=== PATIENT | female | born 1955 | race Caucasian/White ===

== ENCOUNTER 2017-09-25 09:32 | Emergency (ER) | payer OTHER ==
--- NOTE | 2017-09-25 11:54 | CT Preliminary Report ---
Exam: CT HEAD W/O IMPRESSION: Generalized mild age-related cortical atrophic changes without evidence of acute intracra nial abnormality. [facility] SITE ID: [id number]
--- NOTE | 2017-09-25 11:54 | CT Report ---
EXAM: CT HEAD EXAM DATE: 09/25/2017 11:46 AM. CLINICAL HISTORY: Dipploplia. COMPARISON: None. TECHNIQUE: Multiaxial CT images were obtained from the foramen magnum to the vertex. Reformats: Coron al. IV contrast: None. In accordance with CT protocol optimization, one or more of the following dose reduction techniques w ere utilized for this exam: automated exposure control, adjustment of mA and/or KV based on patient s ize, or use of iterative reconstructive technique. FINDINGS: Parenchyma: No intraparenchymal hemorrhage. No evidence of mass, midline shift, or CT findings of acu te infarction. Green-white differentiation is distinct. Diffuse chronic microangiopathic white matter changes are evident. Extraaxial Spaces: Normal for age. No subdural or epidural collections identified. Ventricles: The ventricles and cortical sulci are enlarged, consistent with age-related tissue loss. Sinuses and orbits: Imaged paranasal sinuses, orbits, and mastoids show no significant abnormality. Bones: No evidence of fracture or calvarial defect. Other: None. IMPRESSION: Generalized mild age-related cortical atrophic changes without evidence of acute intracra nial abnormality. [facility] Referring Provider Line: [phone] SITE ID: [id number]
--- NOTE | 2017-09-25 12:37 | ED Physician Documentation ---
PD HPI OPHTHO - Stated complaint Stated Complaint: DOUBLE VISION - Chief complaint Chief Complaint: Neuro - History obtained from History obtained from: Patient, Family - History of Present Illness Timing - onset: Today Timing - duration: Minutes Timing - details: Abrupt onset, Still present Location: Right Quality / character: Other (double vision from one eye) Associated symptoms: Double vision, Decreased vision (blurring bilaterally). No : Redness, Swelling, Tearing, Discharge, Matting, FB sensation Contributing factors: No: Recent URI Similar symptoms before: Has not had sx before Recently seen: Not recently seen - Additional information Additional information: 62-year-old female was driving today when she noticed that she was seeing double out of her right eye. She noticed blurring of vision from both eyes but on the right there is a double image vertically. She has repeated this and closing the left eye she sees double out of the right she sees blurry with either eye. Review of Systems Constitutional: denies: Fever, Chills, Myalgias Eyes: reports: Decreased vision, Other (double vision) Ears: denies: Loss of hearing, Ear pain Nose: denies: Congestion Throat: denies: Sore throat Cardiac: denies: Chest pain / pressure Respiratory: denies: Dyspnea, Cough GI: denies: Abdominal Pain, Nausea, Vomiting : denies: Dysuria, Frequency Skin: denies: Rash Musculoskeletal: denies: Neck pain, Back pain, Extremity pain Neurologic: denies: Generalized weakness, Focal weakness, Numbness, Syncope, Seizure, Headache, Head injury, LOC Psychiatric: denies: Depressed PD PAST MEDICAL HISTORY - Past Medical History Past Medical History: No - Present Medications Home Medications: Ambulatory Orders Medication Instructions Recorded Confirmed No Known Home Medications [No 09/25/17 09/25/17 Known Home Medications] - Allergies Allergies/Adverse Reactions: Allergies Allergy/AdvReac Type Severity Reaction Status Date / Time No Known Drug Allergies Allergy Verified 09/25/17 09:38 - Social History Does the pt smoke?: No Smoking Status: Never smoker PD ED PE NORMAL - Vitals Vital signs reviewed: Yes - General General: Alert and oriented X 3, No acute distress, Well developed/nourished - HEENT HEENT: Atraumatic, PERRL, EOMI, Ears normal, Moist mucous membranes, Pharynx benign - Neck Neck: Supple, no meningeal sign, No bony TTP - Cardiac Cardiac: RRR, No murmur - Respiratory Respiratory: No respiratory distress, Clear bilaterally - Abdomen Abdomen: Soft, Non tender - Back Back: No CVA TTP, No spinal TTP - Derm Derm: Normal color, Warm and dry, No rash - Extremities Extremities: No deformity, No edema - Neuro Neuro: Alert and oriented X 3, color repairer 2-12 intact, No motor deficit, No sensory deficit, Normal speech Eye Opening: Spontaneous Motor: Obeys Commands Verbal: Oriented GCS Score: 15 - Psych Psych: Normal mood, Normal affect Results - Vitals Vitals: Vital Signs - 24 hr 09/25/17 09/25/17 09/25/17 09:34 10:31 12:40 Temperature 36.3 C L Heart Rate 95 74 68 Respiratory 16 18 18 Rate Blood Pressure 177/115 H 134/98 H 147/89 H O2 Saturation 97 95 96 09/25/17 13:33 Temperature Heart Rate 74 Respiratory 18 Rate Blood Pressure 134/66 H O2 Saturation 98 Oxygen O2 Source Room air Procedures - Bedside sono Bedside sono by EMP: With use of bedside ultrasound the retina of both eyes is examined there is no evidence of retinal detachment bilaterally. PD MEDICAL DECISION MAKING - ED course Complexity details: reviewed results, re-evaluated patient, considered differential, d/w patient, d/w family ED course: 62-year-old female with monocular double vision has a negative CT scan of the head and bedside ultrasound does not demonstrate any retinal detachment. I have called the supervisor [employer] Dr. Longo who graciously agrees to see the patient in his clinic this afternoon. Departure - Departure Disposition: 01 Home, Self Care Clinical Impression: Monocular diplopia of right eye Condition: Stable Instructions: ED Double Vision Follow-Up: LUBNA LONGO MD [Physician No Access] - Discharge Date/Time: 09/25/17 13:33
[2017-09-25] MEDS ORDERED: ACETAMINOPHEN 325 MG TABLET PO STA ×2 (13:27→13:29)
[2017-09-25 13:34] VITALS: BP 134/66
== END 2017-09-25 13:33 | disposition home or self-care (01) ==
LOC: ED 09:32
DX: H53.2 Diplopia (principal)
CPT/HCPCS: 70450; 99283; 99284; A9270

== ENCOUNTER 2024-01-29 08:45 | Outpatient (CLI) | payer OTHER ==
[2024-01-29 12:22] LABS: BASOPHILS % (AUTO) 0.7 %; EOSINOPHILS # (AUTO) 0.1 10^3/uL (0.0-0.7); EOSINOPHILS % (AUTO) 1.1 %; HCT - HEMATOCRIT 44.4 % (37.0-47.0); HGB - HEMOGLOBIN 14.8 g/dL (12.0-16.0); LYMPHOCYTES # (AUTO) 1.8 10^3/uL (1.5-3.5); LYMPHOCYTES % (AUTO) 40.5 %; MEAN CORPUSCULAR HEMOGLOBIN 31.5 pg (27.0-31.0); MEAN CORPUSCULAR HGB CONC 33.3 g/dL (32.0-36.0); MEAN CORPUSCULAR VOLUME 94.5 fL (81.0-99.0); MEAN PLATELET VOLUME 10.7 fL (7.9-10.8); MONOCYTES # (AUTO) 0.7 10^3/uL (0.0-1.0); MONOCYTES % (AUTO) 16.3 %; NEUTROPHILS # (AUTO) 1.9 10^3/uL (1.5-6.6); NEUTROPHILS % (AUTO) 41.2 %; PLT - PLATELET COUNT 157 10^3/uL (130-450); RED CELL DISTRIBUTION WIDTH 12.9 % (12.0-15.0); WHITE BLOOD COUNT 4.5 x10^3/uL (4.8-10.8)
[2024-01-29 12:43] LABS: ALBUMIN 4.6 g/dL (3.2-5.5); ALBUMIN/GLOBULIN RATIO 1.4 (1.0-2.2); BILIRUBIN,TOTAL 0.4 mg/dL (0.2-1.0); CALCIUM 9.5 mg/dL (8.5-10.3); POTASSIUM 3.6 mmol/L (3.5-4.5); TOTAL PROTEIN 7.8 g/dL (6.4-8.9)
[2024-01-29 15:19] LABS: THYROID STIMULATING HORMONE 4.01 uIU/mL (0.34-5.60)
== END 2024-01-29 09:00 | disposition home or self-care (01) ==
LOC: LAB.N 08:45
PROVIDERS: ATTEND Physician Assistant Medical
DX: R03.0 Elevated blood-pressure reading, without diagnosis of hypertension (principal)
CPT/HCPCS: 36415; 80053; 84443; 85025

== ENCOUNTER 2024-01-29 09:00 | Outpatient (CLI) | payer OTHER ==
--- NOTE | 2024-01-29 10:50 | XRAY Report ---
PROCEDURE: Chest 2V INDICATIONS: ELEVATED BLOOD PRESSURE TECHNIQUE: 2 views of the chest were acquired. COMPARISON: None. FINDINGS: Surgical changes and devices: None. Lungs and pleura: No pleural effusions or pneumothorax. Lungs are clear. Mediastinum: Mediastinal contours appear normal. Heart size is normal. Bones and chest wall: No suspicious bony lesions. Overlying soft tissues appear unremarkable. IMPRESSION: No acute cardiopulmonary process. Reviewed by: Titus Gomes MD on 01/29/2024 10:48 AM PDT Approved by: Titus Gomes MD on 01/29/2024 10:48 AM PDT Station ID: [id number]
== END 2024-01-29 09:15 | disposition home or self-care (01) ==
LOC: DI.N 09:00
PROVIDERS: ATTEND Physician Assistant Medical
DX: R03.0 Elevated blood-pressure reading, without diagnosis of hypertension (principal)

== ENCOUNTER 2024-03-14 07:55 | Outpatient (CLI) | payer OTHER ==
[2024-03-14 08:34] LABS: CHOL/HDL RATIO 4.3 (<4.4); CHOLESTEROL 244 mg/dL; HDL CHOLESTEROL 57 mg/dL; LDL CHOLESTEROL,CALCULATED 131 mg/dL; LDL/HDL RATIO 2.3 (<4.4); TRIGLYCERIDES 278 mg/dL; VLDL CHOLESTEROL 56 mg/dL
[2024-03-14 08:37] LABS: THYROID STIMULATING HORMONE 7.55 uIU/mL (0.34-5.60)
== END 2024-03-14 07:56 | disposition home or self-care (01) ==
LOC: LAB 07:55
PROVIDERS: ATTEND Nurse Practitioner Family
DX: R03.0 Elevated blood-pressure reading, without diagnosis of hypertension (principal); G43.B0 Ophthalmoplegic migraine, not intractable
CPT/HCPCS: 36415; 80061; 83721; 84439; 84443